=== PATIENT | female | born 1945 | race Caucasian/White ===

== ENCOUNTER 2016-04-10 05:24 | Inpatient (IN) | payer OTHER ==
[~2016-04-10] VITALS: Ht 157.5 cm; Wt 66.0 kg
[~2016-04-10 05:24] MED LIST: LOPRESSOR50 MG PO; PRAVACHOL40 MG PO; VESICARE5 MG PO
[2016-04-10 05:46] VITALS: BP 179/71
[2016-04-10 13:15] VITALS: BP 126/58
[2016-04-10 15:29] VITALS: BP 135/80
[2016-04-10 19:43] VITALS: BP 126/62
[2016-04-10 23:45] VITALS: BP 137/63
[2016-04-11 03:45] VITALS: BP 101/46
[2016-04-11 07:27] LABS: EOSINOPHIL (%) 0.1 % (0-5); HEMATOCRIT 34.9 % (36.0-46.0); IMMATURE GRANULOCYTE (%) 0.1 % (0.0-0.7); LYMPHOCYTE COUNT 1.7 K/uL (1.0-2.8); MCH 30.7 PG (29.0-34.0); MCHC 34.1 G/DL (30.0-36.0); MCV 90.2 FL (83-99); MEAN PLAT.VOLUME 10.3 uM^3 (9.5-12.4); MONOCYTE COUNT 0.8 K/uL (0-0.8); NEUTROPHIL (%) 71.4 % (45-76); NEUTROPHIL COUNT 6.4 K/uL (1.8-6.4); PLATELET COUNT 166 K/uL (156-360); RBC DIS.WIDTH-CV 13.4 % (11.8-14.6); RBC DIS.WIDTH-SD 43.7 % (39-53); RED BLOOD COUNT 3.87 M/uL (3.80-5.20)
[2016-04-11 07:35] VITALS: BP 123/61
[2016-04-11 07:47] LABS: ANION GAP 8 MEQ/L (2-14); CHLORIDE 103 MEQ/L (99-109); GFR ESTIMATE (CALCULATED) > 59 mL/min/; GLUCOSE 103 mg/dL (70-99); POTASSIUM 4.2 MEQ/L (3.7-5.4); SAMPLE HEMOLYSIS CHECK 0; SAMPLE ICTERIC CHECK 0; SAMPLE LIPEMIA CHECK 0; SODIUM 139 MEQ/L (136-147); UREA NITROGEN (BUN) 11 mg/dL (9-23)
[2016-04-11 11:43] VITALS: BP 114/54
[2016-04-11 16:02] VITALS: BP 117/48
[2016-04-11 19:36] VITALS: BP 107/52
[2016-04-11 23:35] VITALS: BP 108/54
[2016-04-12 03:46] VITALS: BP 149/63
[2016-04-12 06:01] LABS: EOSINOPHIL (%) 0.9 % (0-5); EOSINOPHIL COUNT 0.1 K/uL (0-0.3); HEMATOCRIT 32.9 % (36.0-46.0); IMMATURE GRANULOCYTE (%) 0.2 % (0.0-0.7); MCH 30.6 PG (29.0-34.0); MCHC 33.4 G/DL (30.0-36.0); MCV 91.4 FL (83-99); MEAN PLAT.VOLUME 10.1 uM^3 (9.5-12.4); MONOCYTE (%) 9.9 % (3-12); MONOCYTE COUNT 0.6 K/uL (0-0.8); NEUTROPHIL (%) 73.1 % (45-76); NEUTROPHIL COUNT 4.6 K/uL (1.8-6.4); PLATELET COUNT 125 K/uL (156-360); RBC DIS.WIDTH-CV 13.2 % (11.8-14.6); WHITE BLOOD COUNT 6.4 K/uL (4.1-10.2)
[2016-04-12 06:27] LABS: ANION GAP 6 MEQ/L (2-14); CHLORIDE 102 MEQ/L (99-109); GFR ESTIMATE (CALCULATED) > 59 mL/min/; GLUCOSE 105 mg/dL (70-99); POTASSIUM 3.5 MEQ/L (3.7-5.4); SAMPLE HEMOLYSIS CHECK 0; SAMPLE ICTERIC CHECK 0; SAMPLE LIPEMIA CHECK 0; SODIUM 136 MEQ/L (136-147); UREA NITROGEN (BUN) 7 mg/dL (9-23)
[2016-04-12 07:39] VITALS: BP 113/53
[2016-04-12 11:22] VITALS: BP 138/63
== END 2016-04-12 13:45 | disposition home or self-care (01) | DRG 742 ==
LOC: 2EAST 05:24 → 2SOUTH 05:24 → 2EAST 13:01
PROVIDERS: Obstetrics & Gynecology Gynecology
DX: N81.2 Incomplete uterovaginal prolapse (principal); K57.92 Diverticulitis of intestine, part unspecified, without perforation or abscess without bleeding; N73.6 Female pelvic peritoneal adhesions (postinfective); E66.9 Obesity, unspecified; Z68.27 Body mass index [BMI] 27.0-27.9, adult; D25.9 Leiomyoma of uterus, unspecified; R39.15 Urgency of urination; N95.2 Postmenopausal atrophic vaginitis
CPT/HCPCS: 80048; 85025; 87086; 88307; J0131; J0690; J1100; J1170; J1650; J1885; J2405; J2710; J3010; J7120

== ENCOUNTER → 2017-10-03 | Outpatient (CLI) | payer OTHER, MEDICARE | END | disposition home or self-care (01) | LOC: CDC 08:13 | DX: Z01.810 Encounter for preprocedural cardiovascular examination (principal); K40.90 Unilateral inguinal hernia, without obstruction or gangrene, not specified as recurrent; R00.1 Bradycardia, unspecified; I45.10 Unspecified right bundle-branch block; R94.31 Abnormal electrocardiogram [ECG] [EKG] | CPT/HCPCS: 93000 ==

== ENCOUNTER 2017-10-09 05:32 | Day surgery (SDC) | payer OTHER ==
[~2017-10-09] VITALS: Ht 157.5 cm; Wt 67.5 kg
[2017-10-09 05:54] VITALS: BP 154/72
[2017-10-09] MEDS ORDERED: NORCO 5/3251 TABLET PO (08:31)
[2017-10-09 09:46] VITALS: BP 129/66
[2017-10-09 11:11] VITALS: BP 136/71
== END 2017-10-09 11:30 | disposition home or self-care (01) ==
LOC: SDC
PROC: 0WUF0JZ Supplement Abdominal Wall with Synthetic Substitute, Open Approach (ICD-10-PCS; principal; 2017-10-09)
DX: K43.2 Incisional hernia without obstruction or gangrene (principal); I10 Essential (primary) hypertension; I45.10 Unspecified right bundle-branch block; E66.09 Other obesity due to excess calories; Z68.28 Body mass index [BMI] 28.0-28.9, adult; E78.00 Pure hypercholesterolemia, unspecified
CPT/HCPCS: C1781; J0131; J0330; J0690; J1100; J1170; J1885; J2250; J2405; J3010